=== PATIENT | female | born 1980 | race Caucasian/White ===

== ENCOUNTER 2018-05-10 14:13 | Emergency (ER) | payer OTHER ==
[~2018-05-10] VITALS: Ht 162.6 cm; Wt 110.2 kg
[2018-05-10 14:18] VITALS: Ht 162.6 cm; Wt 110.2 kg
[2018-05-10 15:33] LABS: BASOPHIL % 0.5 % (0-2); PLATELET COUNT 284 x10^3mcL (130-400); RED CELL DISTRIBUTION WIDTH 13.4 % (11.5-14.5)
[2018-05-10 15:41] LABS: CARBON DIOXIDE 29.1 mmol/L (21-32); CHLORIDE SERUM 105 mmol/L (98-107); CREATININE SERUM 0.7 mg/dL (0.6-1.0); GFR1 > 60 mL/min; GLUCOSE SERUM 101 mg/dL (74-106); POTASSIUM SERUM 4.1 mmol/L (3.5-5.1); SODIUM SERUM 140 mmol/L (136-145)
[2018-05-10 15:53] LABS: ALKALINE PHOSPHATASE 70 U/L (46-116); ALT/SGPT 38 U/L (14-59); AST/SGOT 25 U/L (15-37); BILIRUBIN TOTAL 0.2 mg/dL (0.20-1.00); T4(THYROXINE) 7.3 ug/dL (4.7-13.3); TOTAL PROTEIN, SERUM 7.2 g/dL (6.4-8.2)
[2018-05-10 16:11] LABS: ALBUMIN 3.2 g/dL (3.4-5.0)
[2018-05-10 16:45] VITALS: BP 116/72
[2018-05-10 16:58] LABS: AMPHETAMINE QUAL UR NONE DETECTED (See below)
== END 2018-05-10 17:19 | disposition home or self-care (01) ==
LOC: ED 14:13
PROVIDERS: Emergency Medicine
DX: F41.1 Generalized anxiety disorder (principal); F12.90 Cannabis use, unspecified, uncomplicated; I10 Essential (primary) hypertension; F32.9 Major depressive disorder, single episode, unspecified
CPT/HCPCS: 36415; 36600; Q0092

== ENCOUNTER 2018-10-24 13:30 | Emergency (ER) | payer SELFPAY ==
[~2018-10-24] VITALS: Ht 162.6 cm; Wt 112.7 kg
[2018-10-24 13:39] VITALS: Ht 162.6 cm; Wt 112.7 kg
[2018-10-24 15:04] LABS: BASOPHIL % 0.2 % (0-2); PLATELET COUNT 292 x10^3mcL (130-400); RED CELL DISTRIBUTION WIDTH 13.9 % (11.5-14.5)
[2018-10-24 15:08] LABS: CALCIUM 8.8 mg/dL (8.5-10.1); CARBON DIOXIDE 27.8 mmol/L (21-32); CHLORIDE SERUM 106 mmol/L (98-107); CREATININE SERUM 0.7 mg/dL (0.6-1.0); GFR1 > 60 mL/min; GLUCOSE SERUM 97 mg/dL (74-106); POTASSIUM SERUM 4.3 mmol/L (3.5-5.1); SODIUM SERUM 141 mmol/L (136-145)
[2018-10-24 15:13] LABS: ALKALINE PHOSPHATASE 79 U/L (46-116); ALT/SGPT 61 U/L (14-59); AST/SGOT 33 U/L (15-37); BILIRUBIN TOTAL 0.45 mg/dL (0.20-1.00); MAGNESIUM 2.2 mg/dL (1.8-2.4); TOTAL PROTEIN, SERUM 7.3 g/dL (6.4-8.2)
[2018-10-24 15:22] LABS: ALBUMIN 3.1 g/dL (3.4-5.0)
[2018-10-24 15:37] LABS: FREE T4 0.89 ng/dL (0.76-1.46); FREE THYROXINE INDEX 2.1 ug/dL (1.4-4.5); T4(THYROXINE) 6.3 ug/dL (4.7-13.3)
[2018-10-24 16:03] LABS: AMPHETAMINE QUAL UR NONE DETECTED (See below)
[2018-10-24 16:40] VITALS: BP 109/76
== END 2018-10-24 16:40 | disposition home or self-care (01) ==
LOC: ED 13:30
PROVIDERS: Emergency Medicine
DX: R00.2 Palpitations (principal); R07.89 Other chest pain; R06.02 Shortness of breath; I10 Essential (primary) hypertension; F41.9 Anxiety disorder, unspecified; F32.9 Major depressive disorder, single episode, unspecified; E66.9 Obesity, unspecified
CPT/HCPCS: 36415; 84439; Q0092